=== PATIENT | female | born 1960 | race Caucasian/White ===

== ENCOUNTER 2017-10-20 08:09 | Emergency (ER) | payer SELFPAY ==
--- NOTE | 2017-10-20 09:22 | CT ---
CTA OF THORAX UTILIZING IV CONTRAST PE PROTOCOL AND 3D REFORMATTED IMAGING: Date: 10/20/17 INDICATION: History of lung mass. COMPARISON: CT of the abdomen and pelvis dated 10/20/17 and a chest radiograph dated 10/20/17. FINDINGS: No central or segmental pulmonary embolus is evident. There is diffuse metastatic disease. There is a large lung mass within the right lower lobe measuring 8.8 cm. There are enlarged lymph nodes within the mediastinum and hilar regions. One of the largest lymph nodes is seen within the right suprahila r region measuring 2.2 cm. Visualized upper abdomen does not appear appreciably changed from the rece nt comparison. No definite acute osseous abnormality is evident. IMPRESSION: 1. Diffuse metastatic disease of the lungs with mediastinal and hilar lymphadenopathy. 2. The largest lesion within the lungs is seen within the right lower lobe measuring up to 8.8 cm. T his would be amenable to percutaneous sampling if clinically indicated. POS: [facility]
[2017-10-20] MEDS ORDERED: Morphine 4 MG/ML Carpuject ONE (10:08)
[2017-10-20] MEDS ORDERED: ISOVUE-370 76%-LOCM 1 ML ONE (13:54)
== END 2017-10-20 11:13 | disposition home or self-care (01) ==
LOC: ERS 08:09
DX: M54.5 Low back pain (principal); C34.90 Malignant neoplasm of unspecified part of unspecified bronchus or lung; F17.210 Nicotine dependence, cigarettes, uncomplicated
CPT/HCPCS: 71275; 96374; J2270